=== PATIENT | male | born 1960 | race Two or more races ===

== ENCOUNTER 2019-06-02 15:40 | Emergency (ER) | payer MEDICAID ==
[~2019-06-02] VITALS: Ht 177.8 cm; Wt 91.2 kg
--- NOTE | 2019-06-02 15:40 | NUR ---
CAME IN FOR CHEST PAIN, PRESSURE-LIKE, RADIATING TO NECK, SINCE YESTERDAY, H/O DVT,BLE 3 YRS AGO, ON ANTICOAGULANTS, UNTIL A YEAR AGO, ALSO C/O DIZZINESS, TO ER BED 11, HOOKED TO MONITOR AND POX, CHANGED TO HOSP GOWN, PROVIDED W WARM BLANKET, PATIENT AOx 4, BREATHING EVEN AND UNLABORED, AWAITING MD BATEMAN.
--- NOTE | 2019-06-02 16:24 | NUR ---
DR MARTINEZ AT BEDSIDE
[2019-06-02 17:29] LABS: BASOPHILS % (AUTO) 0.4 % (0.0-2.0); EOSINOPHILS % (AUTO) 1.5 % (0.0-6.0); HEMATOCRIT 41 % (39-51); HEMOGLOBIN 13.8 g/dL (13.5-17.5); LYMPHOCYTES # (AUTO) 1.7 /CMM (0.8-4.8); LYMPHOCYTES % (AUTO) 25.7 % (20.0-44.0); MEAN CORPUSCULAR HGB CONC 33 g/dl (31.0-36.0); MEAN CORPUSCULAR VOLUME 99 fL (80-96); MONOCYTES # (AUTO) 1.3 /CMM (0.1-1.30); MONOCYTES % (AUTO) 19.2 % (2.0-12.0); NEUTROPHILS # (AUTO) 3.5 /CMM (1.8-8.9); NEUTROPHILS % (AUTO) 53.2 % (43.0-81.0); PLATELET COUNT (AUTO) 209 /CMM (150-450); RED BLOOD CELL COUNT(AUTO) 4.18 MIL/uL (4.5-6.0); WHITE BLOOD COUNT (AUTO) 6.6 K/uL (4.3-11.0)
[2019-06-02 17:40] LABS: CALCIUM, SERUM 8.7 mg/dL (8.5-10.1); CARBON DIOXIDE 29 mmol/L (21-32); CHLORIDE 102 mmol/L (98-107); CREATININE 1.2 mg/dL (0.6-1.3); GLUCOSE 93 mg/dL (74-106); SODIUM SERUM 140 mmol/L (136-145); UREA NITROGEN, BLOOD 9 mg/dL (7-18)
[2019-06-02] MEDS ORDERED: LIDOCAINE 1%-EPI 1:100,000 20 ML VIAL ONE (17:43)
[2019-06-02 17:53] LABS: B-TYPE NATRIURETIC PEPTIDE 92 PG/ML (0-125)
--- NOTE | 2019-06-02 18:03 | NUR ---
call received from amparo kramer residential case manager, clinical report given,wants clinicals faxed to [phone] which she will send to [facility]
[2019-06-02 18:06] LABS: LYMPHOCYTES % (MANUAL) 31 % (16-48); MONOCYTES % (MANUAL) 14 % (0-11.0); NEUTROPHILS % (MANUAL) 55 (42-76)
--- NOTE | 2019-06-02 18:50 | NUR ---
DR MARTINEZ AT BEDSIDE FOR INSERTION OF CHEST TUBE.
--- NOTE | 2019-06-02 18:55 | NUR ---
nia christian called, wanting to speak with dr tyson,
--- NOTE | 2019-06-02 19:25 | NUR ---
ROBERT CALLED TO FIND OUT STATUS OF PT. CALL BACK AT [phone].
[2019-06-02] MEDS ORDERED: FAMOTIDINE/PF INJ 20 MG/2 ML VIAL IV ONE ×2 (19:30)
--- NOTE | 2019-06-02 19:47 | NUR ---
REPORT RECEIVED FROM MAYELA YOUNGBLOOD FOR [facility]
--- NOTE | 2019-06-02 19:47 | NUR ---
REPORT RECEIVED FORM YIN [employer] FOR [facility]
--- NOTE | 2019-06-02 19:57 | NUR ---
DR FORRESTER IS SPEAKING WITH GENEV[employer] PAYABLE MANAGER RE: PROCEDURE DONE.
--- NOTE | 2019-06-02 20:00 | NUR ---
DR SWIFT AT BEDSIDE
--- NOTE | 2019-06-02 20:13 | NUR ---
faxed clinicals and facesheet to [facility] to send to [facility]
--- NOTE | 2019-06-02 20:22 | NUR ---
Per Kath from [place], pt going to [facility] bed 215 A, RN is Celestina, # for report [phone].
--- NOTE | 2019-06-02 20:29 | NUR ---
waiting for Kath from [place] with transportation info
--- NOTE | 2019-06-02 21:00 | NUR ---
CHEST TUBE IN PLACE. NO LEAK NOTED.
--- NOTE | 2019-06-02 21:00 | NUR ---
Note spencer in [facility] - 06/03/19 at 0118 by YELENA CHEST TUBE IN PLACE. NO LEAK NOTED.
--- NOTE | 2019-06-02 21:44 | NUR ---
Kath norman, transport info: ETA 22:40-23:00 [facility]
--- NOTE | 2019-06-02 22:41 | NUR ---
SPOKE W/ RYLIE VIEYRA FOR REPORT.
--- NOTE | 2019-06-02 23:07 | NUR ---
Per Laquita from [facility], updated eta is [id number], because waiting for nurse
--- NOTE | 2019-06-02 23:45 | NUR ---
SPOKE W/ JARRELL RN FOR UPDATE
[2019-06-02] MEDS ORDERED: ONDANSETRON HCL/PF 4 MG/2 ML VIAL ONE (23:53)
[2019-06-02] MEDS ORDERED: MORPHINE SULFATE INJ 4 MG/ML DISP.SYRIN ONE (23:54)
[2019-06-03] MEDS ORDERED: MORPHINE SULFATE INJ 2 MG/ML DISP.SYRIN IV ONE
[2019-06-03] MEDS ORDERED: ONDANSETRON HCL/PF 4 MG/2 ML VIAL IV ONE
[2019-06-03 00:37] VITALS: BP 136/80
--- NOTE | 2019-06-03 00:38 | NUR ---
REPORT GIVEN TO EMS, PT STABLE FOR TRANSFER
--- NOTE | 2019-06-03 00:44 | NUR ---
PER ER MD RAIN. PT STABLE FOR TRANSFER TO TELE FLOOR. NO INDICATIONS TO ADMIT TO ICU. [facility] AWARE.
== END 2019-06-03 01:19 | disposition short-term general hospital (02) ==
LOC: ER 15:42
DX: J93.9 Pneumothorax, unspecified (principal); R07.89 Other chest pain; R06.02 Shortness of breath; F17.200 Nicotine dependence, unspecified, uncomplicated; Z60.2 Problems related to living alone
CPT/HCPCS: 32551; 36415; 71045 ×2; 80048; 83880; 84484; 85025; 85378; 93005; 96374; 96375; 99285; J2270; J2405; J3490 ×2